=== PATIENT | female | born 1955 | race Caucasian/White ===

== ENCOUNTER 2025-03-03 05:52 | Day surgery (SDC) | payer OTHER ==
[~2025-03-03 05:52] MED LIST: MILLIPRED5 MG PO; SYNTHROID88 MCG PO; XELJANZ XR11 MG PO; ZANAFLEX2 M1 PO; ZETIA10 MG PO
[2025-03-03] MEDS ORDERED: BUPIVACAINE HCL 30 ML VIAL IJ ONE (08:45)
[2025-03-03] MEDS ORDERED: IOHEXOL 240 mgI/ML 100ML BOTT IV ONE (09:00)
[2025-03-03] MEDS ORDERED: DEXAMETHASONE SODIUM PHOSPHATE 4 MG/ML VIAL IJ ONE (09:00)
[2025-03-03] MEDS ORDERED: LIDOCAINE HCL 1% 20 ML VIAL IJ ONE (09:00)
== END 2025-03-03 12:05 | disposition home or self-care (01) ==
LOC: CIR.AMB 05:52
PROVIDERS: ATTEND Anesthesiology Pain Medicine
DX: M99.73 Connective tissue and disc stenosis of intervertebral foramina of lumbar region (principal); Z88.8 Allergy status to other drugs, medicaments and biological substances